=== PATIENT | female | born 1945 | race Caucasian/White ===

== ENCOUNTER 2025-06-03 10:00 | Outpatient (RCR) | payer MEDICARE, BC, SELFPAY | END 2025-10-01 23:59 | disposition home or self-care (01) | PROVIDERS: Visit Provider Nurse Practitioner | DX: M25.562 Pain in left knee (principal); I89.0 Lymphedema, not elsewhere classified; Z51.89 Encounter for other specified aftercare | CPT/HCPCS: 97110; 97140; 97161; 97165; 97535; X5282 ==